=== PATIENT | female | born 1960 | race Caucasian/White ===

== ENCOUNTER 2018-06-09 08:17 | Emergency (ER) | payer OTHER ==
[~2018-06-09] VITALS: Ht 154.9 cm; Wt 67.6 kg
[~2018-06-09 08:17] MED LIST: ASA81 MG PO; PREVACID15 MG; TRAMADOL HCL-AP1 TAB PO; ZANTAC150 MG
[2018-06-09] MEDS ORDERED: OSTERA TABLET1 EACH (08:30)
[2018-06-09] MEDS ORDERED: MAGNESIUM27 MG (08:30)
[2018-06-09] MEDS ORDERED: BALANCED B-100100 MG (08:31)
== END 2018-06-09 10:51 | disposition home or self-care (01) ==
LOC: ER 08:17
DX: M79.1 Myalgia (principal)

== ENCOUNTER 2019-09-24 09:45 | Emergency (ER) | payer OTHER ==
[~2019-09-24] VITALS: Ht 154.9 cm; Wt 60.8 kg
[~2019-09-24 09:45] MED LIST changes: +BALANCED B-100100 MG; +MAGNESIUM27 MG; +OSTERA TABLET1 EACH
== END 2019-09-24 11:59 | disposition home or self-care (01) ==
LOC: ER 09:45
DX: J40 Bronchitis, not specified as acute or chronic (principal)

== ENCOUNTER 2019-12-05 05:58 | Emergency (ER) | payer OTHER ==
[~2019-12-05] VITALS: Ht 154.9 cm; Wt 62.6 kg
== END 2019-12-05 13:49 | disposition home or self-care (01) ==
LOC: ER 05:58
DX: G89.11 Acute pain due to trauma (principal); M54.5 Low back pain; M25.552 Pain in left hip; M54.2 Cervicalgia

== ENCOUNTER 2020-02-16 21:49 | Emergency (ER) | payer OTHER ==
[~2020-02-16] VITALS: Ht 154.9 cm; Wt 62.6 kg
[2020-02-16] MEDS ORDERED: PROAIR HFA8.5 GM (21:58)
[2020-02-16] MEDS ORDERED: ALBUTEROL2.5 MG/3 M IH (21:58)
== END 2020-02-16 22:41 | disposition home or self-care (01) ==
LOC: ER 21:49
DX: J45.998 Other asthma (principal)

== ENCOUNTER 2022-01-22 23:01 | Emergency (ER) | payer OTHER ==
[~2022-01-22] VITALS: Ht 154.9 cm; Wt 62.1 kg
[~2022-01-22 23:01] MED LIST changes: +ALBUTEROL2.5 MG/3 M IH; +PROAIR HFA8.5 GM
[2022-01-22] MEDS ORDERED: AMMONIUM LACTA400 GM (23:43)
[2022-01-22] MEDS ORDERED: TRIAMCINOLONE10 GM (23:44)
[2022-01-22] MEDS ORDERED: LEVOFLOXACIN5 ML (23:45)
[2022-01-22] MEDS ORDERED: AMOX1TAB5 (23:45)
[2022-01-22] MEDS ORDERED: PREVACID30 MG (23:45)
[2022-01-23] MEDS ORDERED: MEDROL8 MG PO (02:53)
[2022-01-23] MEDS ORDERED: BENADRYL25 MG PO (02:53)
[2022-01-23] MEDS ORDERED: PEPCID40 MG PO (02:53)
== END 2022-01-23 02:55 ==
LOC: ER 23:01
DX: R21 Rash and other nonspecific skin eruption (principal); Z91.018 Allergy to other foods

== ENCOUNTER 2022-03-23 12:08 | Emergency (ER) | payer OTHER ==
[~2022-03-23] VITALS: Ht 154.9 cm; Wt 62.1 kg
[~2022-03-23 12:08] MED LIST changes: +AMMONIUM LACTA400 GM; +AMOX1TAB5; +BENADRYL25 MG PO; +LEVOFLOXACIN5 ML; +MEDROL8 MG PO; +PEPCID40 MG PO; +PREVACID30 MG; +TRIAMCINOLONE10 GM
[2022-03-23] MEDS ORDERED: ESTRADIOL10 MCG VG (12:44)
[2022-03-23] MEDS ORDERED: PROLIA60 MG/1 ML SUBCUTANEO (12:44)
== END 2022-03-23 19:24 | disposition home or self-care (01) ==
LOC: ER 12:08
DX: U07.1 COVID-19 (principal); Z88.8 Allergy status to other drugs, medicaments and biological substances; Z91.018 Allergy to other foods

== ENCOUNTER 2022-04-19 07:28 | Emergency (ER) | payer OTHER ==
[~2022-04-19] VITALS: Ht 154.9 cm; Wt 62.6 kg
[~2022-04-19 07:28] MED LIST changes: +ESTRADIOL10 MCG VG; +PROLIA60 MG/1 ML SUBCUTANEO
== END 2022-04-19 10:45 | disposition home or self-care (01) ==
LOC: ER 07:28
DX: M77.8 Other enthesopathies, not elsewhere classified (principal)

== ENCOUNTER 2025-03-26 12:30 | Emergency (ER) | payer OTHER ==
[~2025-03-26] VITALS: Ht 154.9 cm; Wt 62.1 kg
[2025-03-26] MEDS ORDERED: BENZONATATE 100 MG CAPSULE PO STA (14:19)
[2025-03-26] MEDS ORDERED: GUAIFENESIN 600 MG TABLET.SA PO STA (14:23)
[2025-03-26 15:16] LABS: BASO % 0.3 % (0.1-1.2); EOS # 0.13 (0.04-0.54); EOS % 1.4 % (0.7-7.0); HEMATOCRIT 37.5 % (34.1-44.9); HEMOGLOBIN 12.5 g/dL (11.2-15.7); LYMPH # 2.17 (1.18-3.74); LYMPH % 23.7 % (19.3-53.1); MEAN CORPUSCULAR HEMOGLOBIN 29.5 pg (25.6-32.2); MONO # 0.93 (0.24-0.82); MONO % 10.2 % (4.7-12.5); NEUT # 5.85 (1.56-6.13); NEUT % 64.1 % (34.0-71.1); PLATELET COUNT 302 K/uL (163-369); RED BLOOD COUNT 4.24 M/uL (3.93-5.22); RED CELL DISTRIBUTION WIDTH 13.7 % (11.6-14.4)
[2025-03-26 15:28] LABS: COVID-19 AG NEGATIVE (NEGATIVE); INFLUENZA A AG NEGATIVE (NEGATIVE); INFLUENZA B AG NEGATIVE (NEGATIVE)
[2025-03-26 15:46] LABS: ALBUMIN 3.4 gm/dL (3.4-5.0); BILIRUBIN TOTAL 0.29 mg/dL (0.3-1.2); CALCIUM 8.7 mg/dL (8.5-10.1); CREATININE SERUM 0.75 mg/dL (0.55-1.02); GFR 78.05; GLOBULINA 4.2 G/DL (2.4-3.5); POTASSIUM 4.1 mEq/L (3.5-5.1); TOTAL PROTEIN 7.6 gm/dL (6.4-8.2)
[2025-03-26] MEDS ORDERED: AMOX-CLAV 875-1 EACH PO (16:38)
[2025-03-26] MEDS ORDERED: SINGULAIR10 MG PO (16:38)
[2025-03-26] MEDS ORDERED: ZYRTEC10 MG PO (16:38)
== END 2025-03-26 16:58 | disposition home or self-care (01) ==
LOC: ER 12:37
PROVIDERS: General Practice
DX: J32.9 Chronic sinusitis, unspecified (principal); Z20.822 Contact with and (suspected) exposure to COVID-19; Z88.6 Allergy status to analgesic agent; Z88.2 Allergy status to sulfonamides; Z87.09 Personal history of other diseases of the respiratory system